=== PATIENT | male | born 1960 | race Caucasian/White ===

== ENCOUNTER 2020-01-07 21:32 | Emergency (ER) | payer SELFPAY ==
[~2020-01-07] VITALS: Ht 175.3 cm; Wt 90.7 kg
== END 2020-01-07 21:41 | disposition expired ==
LOC: MED 21:32
DX: I46.9 Cardiac arrest, cause unspecified (principal); Z88.0 Allergy status to penicillin
CPT/HCPCS: 31500; 92950; 99285